=== PATIENT | female | born 1995 | race Caucasian/White ===

== ENCOUNTER 2018-04-11 21:03 | Emergency (ER) | payer MEDICAID, OTHER ==
[~2018-04-11] VITALS: Ht 170.2 cm; Wt 70.0 kg
[~2018-04-11 21:03] MED LIST: IBUP-1986 PO; ONDA4TAB12 PO
[2018-04-11 23:56] VITALS: BP 122/65
== END 2018-04-11 23:59 | disposition home or self-care (01) ==
LOC: ER 21:03
DX: M54.5 Low back pain (principal); Z79.899 Other long term (current) drug therapy; W01.0XXA Fall on same level from slipping, tripping and stumbling without subsequent striking against object, initial encounter; Y93.01 Activity, walking, marching and hiking; Y92.89 Other specified places as the place of occurrence of the external cause; Y99.8 Other external cause status
CPT/HCPCS: 99281

== ENCOUNTER 2019-05-17 11:10 | Emergency (ER) | payer MEDICAID, OTHER ==
[~2019-05-17] VITALS: Ht 170.2 cm; Wt 72.7 kg
[2019-05-17 11:35] VITALS: BP 118/77
== END 2019-05-17 13:31 | disposition home or self-care (01) ==
LOC: ER 11:11
DX: J02.8 Acute pharyngitis due to other specified organisms (principal); B97.89 Other viral agents as the cause of diseases classified elsewhere; Z79.899 Other long term (current) drug therapy
CPT/HCPCS: 87081; 87880; 99283

== ENCOUNTER 2023-10-10 10:35 | Emergency (ER) | payer MEDICAID, OTHER ==
[~2023-10-10] VITALS: Ht 170.2 cm; Wt 78.2 kg
[2023-10-10 10:49] VITALS: TEMP 98.7
[2023-10-10 11:13] LABS: BILIRUBIN,URINE NEGATIVE (Neg); CLARITY,URINE CLOUDY (Clear); COLOR,URINE YELLOW (Yellow); GLUCOSE, URINE NEGATIVE (Neg); KETONES,URINE NEGATIVE (Neg); LEUKOCYTE ESTERASE ,URINE LARGE (Neg); NITRITES, URINE POSITIVE (Neg); OCCULT BLOOD,URINE SMALL (Neg); PROTEIN,URINE NEGATIVE (Neg); UROBILINOGEN,URINE 0.2 E.U/dL (0.2-1.0)
[2023-10-10 11:14] LABS: UA COLLECTION TYPE CLN CATCH MIDSTREAM
[2023-10-10 11:16] LABS: URINE HCG NEGATIVE (NEG)
[2023-10-10 11:33] LABS: BACTERIA,URINE 4+ /HPF (Neg); MUCUS STRANDS MODERATE /LPF (Neg); SQUAMOUS EPITHELIAL CELL,UR MANY /LPF (FEW); TRICHOMONAS,URINE FEW /HPF (NEGATIVE)
[2023-10-10 11:34] LABS: TRANSITIONAL EPI CELLS,URINE FEW /HPF; WBC,URINE 50-100 /HPF (0-4)
[2023-10-10 11:59] VITALS: RESP 16
[2023-10-10] MEDS ORDERED: DOXY-356 PO (12:01)
[2023-10-10] MEDS: DOXYCYCLINE 100MG CAPSULE PO STA (12:14)
[2023-10-10] MEDS: CefTRIAXone 1000mg IM Kit (w/lidocaine diluent) IM ONE (12:14)
[2023-10-13 13:49] LABS: CHLAMYDIA TRACHOMATIS, NAA Negative (Negative)
== END 2023-10-10 12:28 | disposition home or self-care (01) ==
LOC: ER 10:36
DX: N39.0 Urinary tract infection, site not specified (principal); N75.0 Cyst of Bartholin's gland; Z79.1 Long term (current) use of non-steroidal anti-inflammatories (NSAID); Z79.2 Long term (current) use of antibiotics; Z79.899 Other long term (current) drug therapy
CPT/HCPCS: 36415; 81001; 81025; 87491; 87591; 96372; 99283; J0696